=== PATIENT | male | born 1940 | race Caucasian/White ===

== ENCOUNTER 2017-04-02 10:03 | Inpatient (IN) | payer OTHER, MEDICARE ==
[~2017-04-02] VITALS: Ht 172.7 cm; Wt 67.6 kg
[~2017-04-02 10:03] MED LIST: ALEVE220 M2 PO; ALEVE220 MG PO; ASCORBIC ACID250 MG PO; ASCORBIC ACID500 M3 PO; BENADRYL25 MG PO; CLARITIN10 MG PO; COLACE100 MG PO; FLOMAX0.4 MG PO; HYDROCORTISONE30 G3 TP; IRON240 MG PO; IRON325 M1 PO; PROMETHAZINE HC25 M1 PO; PROTONIX40 MG PO; VITAMIN C500 MG/15 PO
[2017-04-02 11:05] LABS: HEMATOCRIT 28.4 % (38.0-50.0); MCV 103.3 FL (86-99); MEAN PLAT.VOLUME 10.8 uM^3 (9.0-12.4); PLATELET COUNT 154 K/uL (156-360); RBC DIS.WIDTH-CV 20.2 % (11.8-14.6); RBC DIS.WIDTH-SD 76.3 % (39-53); RED BLOOD COUNT 2.75 M/uL (4.00-5.50); WHITE BLOOD COUNT 9.1 K/uL (4.1-10.2)
[2017-04-02 11:13] LABS: CHLORIDE 104 mEq/L (99-109); POTASSIUM 4.5 mEq/L (3.7-5.4); SODIUM 137 mEq/L (136-147)
[2017-04-02 11:15] LABS: EOSINOPHIL (%) 0 % (0-5); GLUCOSE 108 mg/dL (70-99); IMMATURE GRANULOCYTE (%) 0.6 % (0.0-0.7); IMMATURE GRANULOCYTE COUNT 0.1 K/uL; INSTRUMENT ABS NEUTROPHIL CT 7.6 K/uL; LYMPHOCYTE COUNT 0.3 K/uL (1.0-2.8); MONOCYTE (%) 11.9 % (3-12); MONOCYTE COUNT 1.1 K/uL (0-0.8); NEUTROPHIL (%) 83.6 % (45-76); NEUTROPHIL COUNT 7.6 K/uL (1.8-6.4)
[2017-04-02 11:16] LABS: ANION GAP 8 MEQ/L (2-14)
[2017-04-02 11:19] LABS: GFR ESTIMATE (CALCULATED) > 59 mL/min/
[2017-04-02 11:20] LABS: UREA NITROGEN (BUN) 28 mg/dL (9-23)
[2017-04-02] MEDS ORDERED: STIVARGA40 MG PO (15:46)
[2017-04-02] MEDS ORDERED: OXYCODONE HCL5 MG PO (15:47)
[2017-04-02] MEDS ORDERED: TIZANIDINE HCL4 MG PO (15:47)
[2017-04-02] MEDS ORDERED: ONDANSETRON HCL8 MG PO (15:48)
[2017-04-02 22:00] VITALS: BP 174/83
[2017-04-03 00:13] VITALS: BP 174/82
[2017-04-03 04:24] VITALS: BP 132/58
[2017-04-03 07:36] VITALS: BP 135/61
[2017-04-03 11:10] VITALS: BP 130/64
[2017-04-03 17:27] VITALS: BP 141/62
[2017-04-03 23:49] VITALS: BP 128/58
[2017-04-04 08:18] VITALS: BP 103/57
[2017-04-04 15:29] VITALS: BP 130/62
[2017-04-04 23:59] VITALS: BP 148/83
[2017-04-05 07:16] VITALS: BP 134/62
[2017-04-05 15:59] VITALS: BP 132/56
[2017-04-05 23:28] VITALS: BP 114/54
[2017-04-06 08:13] VITALS: BP 147/65
[2017-04-06 15:51] VITALS: BP 105/56
== END 2017-04-06 17:15 | DRG 543 ==
LOC: EME 10:03 → 3EAST 13:27 → EDOF 13:27 → 3EAST 13:27
PROVIDERS: Emergency Medicine
DX: C79.51 Secondary malignant neoplasm of bone (principal); M84.40XA Pathological fracture, unspecified site, initial encounter for fracture; G95.20 Unspecified cord compression; I48.91 Unspecified atrial fibrillation; C18.9 Malignant neoplasm of colon, unspecified; K59.03 Drug induced constipation; Z51.5 Encounter for palliative care; Z85.038 Personal history of other malignant neoplasm of large intestine
CPT/HCPCS: 70450; 72125; 72156; 73030; 80048; 85025; 99281; 99285; J2060